=== PATIENT | male | born 1955 | race Caucasian/White ===

== ENCOUNTER → 2017-07-20 | Outpatient (CLI) | payer BC | END | disposition home or self-care (01) | LOC: KCIC MRI 15:37 | DX: M51.17 Intervertebral disc disorders with radiculopathy, lumbosacral region (principal); M48.061 Spinal stenosis, lumbar region without neurogenic claudication | CPT/HCPCS: 72148 ==

== ENCOUNTER → 2018-12-03 | Outpatient (CLI) | payer BC ==
[2016-02-13 16:20] VITALS: BP 112/72
[~2018-12-03] MED LIST: MELO15TA6 PO; ORPH100T PO
--- NOTE | 2018-12-03 18:48 | KCIC ---
MRI of the pelvis with attention to the sacrum/ sacral plexus without contrast 12/03/2018 CLINICAL HISTORY: Left leg sensory loss and left foot drop. Left leg numbness from knee to foot. Foot weakness. TECHNIQUE: Inversion recovery coronal images of the pelvis were obtained. T1-weighted and T2-weighted fat-saturated sagittal, coronal and axial images of the sacrum in the region of the sacral plexus were performed. FINDINGS: Comparison is made to an [facility] radiograph of the pelvis dated 02/13/2016. The patient is post left hemilaminotomy at L4-5 and L5-S1. There appears to be epidural scarring surrounding the left S1 nerve root at L5-S1. Degenerative signal changes are seen within the marrow surrounding the L5-S1 disc. Degenerative signal changes are seen within the marrow surrounding both SI joints. No occult sacral or coccygeal fracture fracture is seen. The marrow signal of the remaining bony pelvis is within normal limits. No abnormal soft tissue mass is seen within the pelvis. No free fluid is seen. No abnormality is seen in the region of the sacral plexus. Asymmetry of the piriformis muscles is noted, left greater than right. At the L5-S1 disc space there is a moderate generalized disc bulge. Degenerative changes are seen involving the facet joints bilaterally. These findings results in mild to moderate bilateral neural foraminal stenosis. No central spinal canal stenosis is seen. Mild degenerative changes are seen involving both SI joints. IMPRESSION: 1. Post left hemilaminotomy at L4-5 and L5-S1. There appears to be epidural scarring surrounding the left S1 nerve root at L5-S1. Mild to moderate bilateral neural foraminal stenosis is seen at L5-S1. 2. Mild degenerative changes are seen involving both SI joints. No occult sacral or coccygeal fracture is seen. 3. No abnormality is seen in the region of the sacral plexus. Asymmetry of the piriformis muscles is noted, left greater than right. This is likely an incidental finding. Theoretically the patient could be symptomatic from this. Clinical correlation is recommended. Electronically signed by: Royer Coppola MD (12/03/2018 6:46 PM) [email or web address]
== END | disposition home or self-care (01) ==
LOC: KCIC MRI 14:41
PROVIDERS: ATTEND Psychiatry & Neurology Neurology with Special Qualifications in Child Neurology
DX: M48.07 Spinal stenosis, lumbosacral region (principal); M47.818 Spondylosis without myelopathy or radiculopathy, sacral and sacrococcygeal region
CPT/HCPCS: 72195